=== PATIENT | male | born 1945 | race Hispanic/Latino ===

== ENCOUNTER 2020-01-27 20:46 | Emergency (ER) | payer OTHER ==
--- NOTE | 2020-01-27 21:08 | Emergency Department Report ---
HPI - General Time Seen by Provider: 01/27/20 20:52 - HPI HPI: Room 7 The patient is a 74-year-old male present with a chief complaint of fall. The patient is currently at [facility] and was witnessed spinning himself around and falling to the ground. There was no reported loss of consciousness. There is no reported nausea or vomiting. The patient is presently under 1013 and has nonsensical speech but denies complaints. Patient was observed ambulating after the fall ED Past Medical Hx - Social History Smoking Status: Never Smoker Substance Use Type: None ED Review of Systems ROS: Stated complaint: FALL Other details as noted in HPI Comment: Unobtainable due to pts medical conditions Physical Exam - Physical Exam Physical Exam: GENERAL: The patient is well-developed well-nourished male sitting on stretcher not appearing to be in acute distress. [] HEENT: Normocephalic. Atraumatic. Extraocular motions are intact. Patient has moist mucous membranes. NECK: Supple. No axial step-off CHEST/LUNGS: Clear to auscultation. There is no respiratory distress noted. HEART/CARDIOVASCULAR: Regular. There is no tachycardia. There is no gallop rub or murmur. ABDOMEN: Abdomen is soft, nontender. Patient has normal bowel sounds. There is no abdominal distention. SKIN: There is no rash. There is no edema. There is no diaphoresis. NEURO: The patient is awake and alert. The patient is not cooperative with neurologic exam. The patient has normal speech. Patient moves all extremities. MUSCULOSKELETAL: There is no evidence of acute injury. ED Medical Decision Making - Radiology Data Radiology results: report reviewed (CT head, CT cervical spine), image reviewed (CT head, CT cervical spine) [facility] [address] [place] [address] Cat Scan Report Signed Patient: JAY RODRIGEZ MR#: [id number] : 1945 Acct:[id number] Age/Sex: 74 / M ADM Date: 01/27/20 Loc: ED Attending Dr: Ordering Physician: MOISE HAWTHORNE MD Date of Service: 01/27/20 Procedure(s): CT head/brain wo con Accession Number(s): [id number] cc: MOISE HAWTHORNE MD Examination: CT of the head without contrast Clinical information: Fall. Trauma. Comparison: None Technical: Multiple axial CT images of the head were obtained without intravenous contrast. Sagittal and coronal reformats were obtained. All CTs at this facility utilize dose reduction techniques including automated exposure control, iterative reconstruction and weight based dosing when appropriate to reduce patient radiation dose to as low as reasonable achievable. Findings: There is no CT evidence of acute intracranial hemorrhage or large territorial infarct. Mild generalized parenchymal volume loss is noted. The ventricular system is normal in size. Evaluation of bony structures demonstrates no evidence of acute bony abnormality. The visualized paranasal sinuses and mastoid air cells are clear. Impression: 1. No CT evidence of acute intracranial process. 2. Mild generalized atrophy. Signer Name: Cindy Sandoval MD Signed: 01/27/2020 10:03 PM Workstation Name: [id number] Transcribed By: EB Dictated By: Cindy Sandoval MD Electronically Authenticated By: Cindy Sandoval MD Signed Date/Time: 01/27/202202 DD/ 00 TD/TT: [address] [address] Cat Scan Report Signed Patient: JAY RODRIGEZ MR#: [id number] : 1945 Acct:[id number] Age/Sex: 74 / M ADM Date: 01/27/20 Loc: ED Attending Dr: Ordering Physician: MOISE HAWTHORNE MD Date of Service: 01/27/20 Procedure(s): CT cervical spine wo con Accession Number(s): [id number] cc: MOISE HAWTHORNE MD Examination: CT of the cervical spine without contrast Clinical information: Fall. Trauma. Comparison: CT of the head, 01/27/2020 Technical: Multiple axial CT images of the cervical spine were obtained without intravenous contrast. Sagittal and coronal reformats were obtained. All CTs at this facility utilize dose reduction techniques including automated exposure control, iterative reconstruction and weight based dosing when appropriate to reduce patient radiation dose to as low as reasonable achievable. Findings: There are moderately advanced degenerative changes throughout the cervical spine, as evidence by multilevel disc space narrowing, facet arthropathy and anterior osteophyte formation. There is no evidence of acute fracture or subluxation. Limited imaging of the bilateral lung apices show no focal abnormality. Impression: 1. 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 Signer Name: Cindy Sandoval MD Signed: 01/27/2020 10:06 PM Workstation Name: [id number] Transcribed By: EB Dictated By: Cindy Sandoval MD Electronically Authenticated By: Cindy Sandoval MD Signed Date/Time: 01/27/202205 DD/ 02 TD/TT: - Differential Diagnosis Close head injury, ICH, cervical strain, cervical fracture Critical care attestation.: If time is entered above; I have spent that time in minutes in the direct care of this critically ill patient, excluding procedure time. ED Disposition Clinical Impression: Closed head injury Disposition: DC/TX-65 PSY HOSP/PSY UNIT Is pt being admited?: No Does the pt Need Aspirin: No Condition: Stable Time of Disposition: 22:17
[2020-01-27 21:09] VITALS: BP 153/80
--- NOTE | 2020-01-27 22:07 | Cat Scan Report ---
Examination: CT of the head without contrast Clinical information: Fall. Trauma. Comparison: None Technical: Multiple axial CT images of the head were obtained without intravenous contrast. Sagittal and coronal reformats were obtained. All CTs at this facility utilize dose reduction techniques inc luding automated exposure control, iterative reconstruction and weight based dosing when appropriate to reduce patient radiation dose to as low as reasonable achievable. Findings: There is no CT evidence of acute intracranial hemorrhage or large territorial infarct. Mild generalized parenchymal volume loss is noted. The ventricular system is normal in size. Evaluation of bony structures demonstrates no evidence of acute bony abnormality. The visualized para nasal sinuses and mastoid air cells are clear. Impression: 1. No CT evidence of acute intracranial process. 2. Mild generalized atrophy. Signer Name: Cindy Sandoval MD Signed: 01/27/2020 10:03 PM Workstation Name: [id number]
--- NOTE | 2020-01-27 22:11 | Cat Scan Report ---
Examination: CT of the cervical spine without contrast Clinical information: Fall. Trauma. Comparison: CT of the head, 01/27/2020 Technical: Multiple axial CT images of the cervical spine were obtained without intravenous contrast. Sagittal and coronal reformats were obtained. All CTs at this facility utilize dose reduction techn iques including automated exposure control, iterative reconstruction and weight based dosing when heather ropriate to reduce patient radiation dose to as low as reasonable achievable. Findings: There are moderately advanced degenerative changes throughout the cervical spine, as evidence by mult ilevel disc space narrowing, facet arthropathy and anterior osteophyte formation. There is no evidenc e of acute fracture or subluxation. Limited imaging of the bilateral lung apices show no focal abnormality. Impression: 1. 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 Signer Name: Cindy Sandoval MD Signed: 01/27/2020 10:06 PM Workstation Name: [id number]
== END 2020-01-28 00:33 ==
LOC: ED 20:46
DX: S09.90XA Unspecified injury of head, initial encounter (principal); W19.XXXA Unspecified fall, initial encounter; Y93.89 Activity, other specified; Y92.89 Other specified places as the place of occurrence of the external cause; Y99.8 Other external cause status
CPT/HCPCS: 70450; 72125; 99283